=== PATIENT | female | born 1965 | race Caucasian/White ===

== ENCOUNTER 2018-11-28 10:49 | Inpatient (IN) | payer BC ==
[2018-11-28 11:25] LABS: ADD MAN DIFF? NO
[2018-11-28 11:29] LABS: BASOPHIL # 0.1 10^3/ul (0.0-0.1); BASOPHILS % 0.7 % (0.0-2.0); EOSINOPHILS # 0.7 10^3/ul (0.0-0.5); EOSINOPHILS % 6.7 % (0.0-7.0); HEMATOCRIT 38.2 % (37.0-47.0); HEMOGLOBIN 12.4 g/dl (12.0-16.0); LYMPHOCYTES # 2.3 10^3/ul (0.8-2.9); LYMPHOCYTES % 22.4 % (15.0-51.0); MEAN CORPUSCULAR HEMOGLOBIN 31.2 pg (29.0-33.0); MEAN CORPUSCULAR HGB CONC 32.5 g/dl (32.0-37.0); MEAN PLATELET VOLUME 8.7 fl (7.4-10.4); MONOCYTE # 0.7 10^3/ul (0.3-0.9); MONOCYTES % 6.3 % (0.0-11.0); NEUTROPHIL # 6.6 10^3/ul (1.6-7.5); NEUTROPHILS % 63.6 % (39.0-77.0); PLATELET COUNT 295 10^3/UL (140-415); RED BLOOD COUNT 3.98 10^6/ul (4.20-5.40); RED CELL DISTRIBUTION WIDTH 12.9 % (11.5-14.5)
[2018-11-28 11:29] LABS: WHITE BLOOD COUNT 10.3 10^3/ul (4.8-10.8)
[2018-11-28 11:52] LABS: INR 0.89; PARTIAL THROMBOPLASTIN TIME 29.1 Sec (23.0-35.0); PROTIME 12.1 Sec (11.9-14.9); PT RATIO 0.9
[2018-11-28 11:57] LABS: ANION GAP 7 (5-13); BLOOD UREA NITROGEN 12 mg/dl (7-20); CALCIUM 9.5 mg/dl (8.4-10.2); CARBON DIOXIDE 28 mmol/L (21-31); CHLORIDE 103 mmol/L (97-110); CHOL/HDL RATIO 3.2 RATIO; CHOLESTEROL 191 mg/dl (100-200); CREATINE KINASE 126 IU/L (23-200); CREATININE 0.87 mg/dl (0.44-1.00); Estimated GFR > 60 mL/min (>60); GLUCOSE 89 mg/dl (70-220); HDL CHOLESTEROL 59 mg/dl (37-92); LDL CHOLESTEROL,CALCULATED 90 mg/dl; POTASSIUM 4.1 mmol/L (3.5-5.1); SODIUM 138 mmol/L (135-144); TRIGLYCERIDES 210 mg/dl (0-149)
[2018-11-28 11:58] LABS: ETHANOL < 10.0 mg/dl (0-0)
[2018-11-28 12:06] LABS: HEMOGLOBIN A1C 5.3 % (0-5.9)
[2018-11-28 12:09] LABS: CK INDEX 1.4; CK-MB 1.71 ng/ml (0.0-2.4); TROPONIN-I < 0.012 ng/ml (0.000-0.120)
[2018-11-28] MEDS ORDERED: MAGNESIUM HYDROXIDE 30ML CUP PO ×2 (13:30)
[2018-11-28] MEDS ORDERED: DOCUSATE SODIUM 100 MG CAP PO ×2 (13:30)
[2018-11-28] MEDS ORDERED: ACETAMINOPHEN 325 MG TAB PO ×2 (13:30)
[2018-11-28] MEDS ORDERED: ALBUTEROL/IPRATROPIUM (NEB) 3 ML AMP HHN (13:30)
[2018-11-28] MEDS ORDERED: NACL 0.9% 3 ML SYG IV ×2 (13:30)
[2018-11-28] MEDS ORDERED: NITROGLYCERIN (SL) 0.4 MG TAB SL (13:30)
[2018-11-28] MEDS ORDERED: morphine 2 MG INJ IV (13:30)
[2018-11-28] MEDS ORDERED: ONDANSETRON 4 MG INJ IV ×2 (13:30)
[2018-11-28] MEDS ORDERED: HYDROCODONE/APAP (5/325) TAB PO ×2 (13:30)
[2018-11-28] MEDS ORDERED: morphine 4 MG/ML VIAL IV (14:00)
[2018-11-28 14:02] LABS: FREE T4 (FREE THYROXINE) 1.03 ng/dl (0.64-1.79)
[2018-11-28] MEDS: IODIXANOL LOCM 100 ML BTL (14:13)
[2018-11-28] MEDS: SOD CHLORIDE 0.9% 100 ML (14:13)
[2018-11-28] MEDS ORDERED: hydrALAzine 20 MG INJ IV (14:30)
[2018-11-28] MEDS: ATORVASTATIN 80 MG TAB PO (14:54)
[2018-11-28] MEDS ORDERED: HEPARIN 5,000 UNIT/1 ML VIAL SC (21:00)
[2018-11-28] MEDS: LORAZEPAM 2 MG INJ IV (23:00)
[2018-11-29 06:23] LABS: ADD MAN DIFF? NO
[2018-11-29 06:28] LABS: WHITE BLOOD COUNT 10.4 10^3/ul (4.8-10.8)
[2018-11-29 06:28] LABS: BASOPHIL # 0.1 10^3/ul (0.0-0.1); BASOPHILS % 0.7 % (0.0-2.0); EOSINOPHILS # 0.8 10^3/ul (0.0-0.5); EOSINOPHILS % 7.3 % (0.0-7.0); HEMATOCRIT 37.6 % (37.0-47.0); HEMOGLOBIN 12.2 g/dl (12.0-16.0); LYMPHOCYTES # 2.3 10^3/ul (0.8-2.9); LYMPHOCYTES % 22.1 % (15.0-51.0); MEAN CORPUSCULAR HGB CONC 32.4 g/dl (32.0-37.0); MEAN CORPUSCULAR VOLUME 95.7 fl (82.0-101.0); MEAN PLATELET VOLUME 9.1 fl (7.4-10.4); MONOCYTE # 0.7 10^3/ul (0.3-0.9); MONOCYTES % 7.1 % (0.0-11.0); NEUTROPHIL # 6.5 10^3/ul (1.6-7.5); NEUTROPHILS % 62.4 % (39.0-77.0); PLATELET COUNT 286 10^3/UL (140-415); RED BLOOD COUNT 3.93 10^6/ul (4.20-5.40)
[2018-11-29 06:59] LABS: ANION GAP 9 (5-13); BLOOD UREA NITROGEN 19 mg/dl (7-20); CALCIUM 9.6 mg/dl (8.4-10.2); CARBON DIOXIDE 27 mmol/L (21-31); CHLORIDE 101 mmol/L (97-110); CHOL/HDL RATIO 2.4 RATIO; CHOLESTEROL 169 mg/dl (100-200); CREATININE 0.89 mg/dl (0.44-1.00); Estimated GFR > 60 mL/min (>60); GLUCOSE 98 mg/dl (70-220); HDL CHOLESTEROL 70 mg/dl (37-92); LDL CHOLESTEROL,CALCULATED 83 mg/dl; POTASSIUM 4.6 mmol/L (3.5-5.1); SODIUM 137 mmol/L (135-144); TRIGLYCERIDES 80 mg/dl (0-149)
[2018-11-29 07:15] LABS: HEMOGLOBIN A1C 5.3 % (0-5.9)
[2018-11-29] MEDS: ASPIRIN (EC) 81 MG TAB PO (08:53)
[2018-11-29] MEDS: ATORVASTATIN 80 MG TAB PO (08:53)
[2018-11-29 20:56] LABS: ALANINE AMINOTRANSFERASE 13 IU/L (13-69); ALBUMIN 4.5 g/dl (3.3-4.9); ALKALINE PHOSPHATASE 88 IU/L (42-121); ASPARTATE AMINO TRANSFERASE 31 IU/L (15-46); BILIRUBIN,INDIRECT 0.3 mg/dl (0-1.1); BILIRUBIN,TOTAL 0.3 mg/dl (0.2-1.3); TOTAL PROTEIN 8.5 g/dl (6.1-8.1)
[2018-11-29 21:20] LABS: C-REACTIVE PROTEIN 0.8 mg/dl (0.0-0.9)
[2018-11-29] MEDS: LORAZEPAM 2 MG INJ IV (21:20)
[2018-11-29 22:49] LABS: ERYTHROCYTE SEDIMENTATION RATE 34 mm/Hr (0-30)
[2018-11-29] MEDS ORDERED: VITAMIN A & D 5 GM OINT PACKET TOP (23:39)
[2018-11-30 06:10] LABS: ADD MAN DIFF? NO
[2018-11-30 06:36] LABS: BASOPHIL # 0.1 10^3/ul (0.0-0.1); EOSINOPHILS # 0.7 10^3/ul (0.0-0.5); EOSINOPHILS % 8.9 % (0.0-7.0); HEMATOCRIT 36.9 % (37.0-47.0); HEMOGLOBIN 12.1 g/dl (12.0-16.0); LYMPHOCYTES # 2.3 10^3/ul (0.8-2.9); MEAN CORPUSCULAR HEMOGLOBIN 31.4 pg (29.0-33.0); MEAN CORPUSCULAR HGB CONC 32.8 g/dl (32.0-37.0); MEAN CORPUSCULAR VOLUME 95.8 fl (82.0-101.0); MEAN PLATELET VOLUME 9.1 fl (7.4-10.4); MONOCYTE # 0.8 10^3/ul (0.3-0.9); MONOCYTES % 9.1 % (0.0-11.0); NEUTROPHIL # 4.4 10^3/ul (1.6-7.5); NEUTROPHILS % 52.9 % (39.0-77.0); PLATELET COUNT 270 10^3/UL (140-415); RED BLOOD COUNT 3.85 10^6/ul (4.20-5.40); RED CELL DISTRIBUTION WIDTH 13.1 % (11.5-14.5)
[2018-11-30 06:36] LABS: WHITE BLOOD COUNT 8.3 10^3/ul (4.8-10.8)
[2018-11-30 07:06] LABS: ANION GAP 7 (5-13); BLOOD UREA NITROGEN 19 mg/dl (7-20); CALCIUM 9.5 mg/dl (8.4-10.2); CARBON DIOXIDE 27 mmol/L (21-31); CHLORIDE 104 mmol/L (97-110); CREATININE 0.93 mg/dl (0.44-1.00); Estimated GFR > 60 mL/min (>60); GLUCOSE 99 mg/dl (70-220); POTASSIUM 4.2 mmol/L (3.5-5.1); SODIUM 138 mmol/L (135-144)
[2018-11-30] MEDS: ASPIRIN (EC) 81 MG TAB PO (08:32)
[2018-11-30] MEDS: ATORVASTATIN 80 MG TAB PO (08:32)
== END 2018-11-30 16:49 | disposition home or self-care (01) | DRG 552 ==
LOC: E/R 10:49 → TEL 11:59
DX: M51.16 Intervertebral disc disorders with radiculopathy, lumbar region (principal); M32.9 Systemic lupus erythematosus, unspecified; I73.00 Raynaud's syndrome without gangrene; F17.200 Nicotine dependence, unspecified, uncomplicated; I10 Essential (primary) hypertension; M21.372 Foot drop, left foot; R47.1 Dysarthria and anarthria
CPT/HCPCS: 36415; 70450; 70496; 70498; 70551; 71045; 72157; 72158; 80048; 80061; 80076; 80307; 82550; 82553; 83036; 84439; 84443; 84484; 85025; 85610; 85651; 85730; 86140; 92610; 93005; 93306; 93880; 97110; 97116; 97161; 97166; 97530; 99285-25